=== PATIENT | male | born 1930 | race Caucasian/White ===

== ENCOUNTER 2016-06-12 20:19 | Emergency (ER) | payer OTHER, MEDICARE ==
[2016-06-12] MEDS ORDERED: TETANUS AND DIPHTHERIA TOXOID 0.5 ML INJ IM ONE (20:38)
[2016-06-12] MEDS ORDERED: Lidocaine 1% 10 MG/ML - 20 ML VIAL SUBCUT ONE (20:38)
--- NOTE | 2016-06-12 20:49 | PDOC ---
Fall HPI - General Chief Complaint: Neck / Back Complaint Stated Complaint: Fell down stairs backwards with back pain Date Seen by Provider: 06/12/16 Time Seen by Provider: 20:35 Source: POSITIVE: Patient Exam Limitations: POSITIVE: No limitations Nurse's Notes Reviewed & Considered: Yes - History of Present Illness Initial Comments: The patient is an 85-year-old male who presents to the emergency department after he fell at home. He apparently has been having some cough recently as well as some rib pain. He was evaluated at his doctor's office in [place] this afternoon and had a chest x-ray. He had been prescribed Levaquin for an upper respiratory infection. Apparently this evening after getting home he lost his footing on the stairs and fell. His and son report that he fell down 6 or 8 stairs and hit the back of his head. He did not have any loss of consciousness. Initially he was complaining of some neck pain and is now complaining of pain more in his mid back. His history is somewhat unreliable as he has fairly advanced dementia. His does not think he has had a tetanus shot for quite some time. He does not take any blood thinner medications. Have you received a tetanus shot in the past 10 years?: Unknown - Patient Home Medications Home Medications: Home Medications Home Oxygen 3 l INH BEDTIME 06/12/16 Levofloxacin [Levaquin] 250 mg PO DAILY 06/12/16 HYDROcodone/APAP 7.5/325 Soln [Lortab 7.5 mg/325 mg Soln] 5 ml PO Q6H PRN #120 ml 06/13/16 - Patient Allergies Allergies/Adverse Reactions: Allergies Allergy/AdvReac Type Severity Reaction Status Date / Time tramadol AdvReac HALLUCINATI Verified 06/12/16 20:25 ONS Past Medical History - heen HEENT History: Other (please comment) Additional HEENT History: 7 eye surgeries per pts' report Cardiovascular History: Denies History Respiratory History: COPD, Emphysema, Home Oxygen Use Additional Respiratory History: Black lung disease. Home oxygen 3L Gastrointestinal History: Other (please comment) Additional Gastrointestinal History: Hernia repair Genitourinary History: Denies History Endocrine History: Denies History Musculoskeletal History: Denies History Neurological History: Dementia, Alzheimer's Blood Disorders: Denies History Psychiatric History: Other (please comment) Additional Psychiatric History: dementia Cancer History: Denies History In Past Year Been Physically Harmed or Verbally Threatened: No History of MDRO: Unknown Tobacco Use: Never Smoker Alcohol Use: None Substance Use Type: None Previous Surgical History: Yes Type / Date of Surgery: Hernia repair. Eye surgery x 7 Significant Family History: No pertinent family hx Past Medical History Reviewed: Reviewed - No Changes ROS - Limitations ROS Limitations: No Limitations Constitution: REPORTS: Denies Symptoms Cardiovascular: REPORTS: Denies Cardiac Symptoms Respiratory: REPORTS: Other (His reports recent cough for which she was prescribed Levaquin) Neurological: REPORTS: Denies Neuro Symptoms Gastrointestinal: DENIES: Abdominal Pain Musculoskeletal: REPORTS: Back Pain, Neck Pain, Other (He was placed in a c- collar shortly after arrival) Fall Physical Exam - General Appearance General Appearance: POSITIVE: Alert, Cooperative, No Acute Distress - HEENT HEENT: POSITIVE: Eyes Inspection Nml, Ears Inspection Nml, Pharynx Inspect. Nml , Other (He does have a 3 cm laceration to the occiput with no active bleeding, he was placed in a c-collar) - Neck Neck: POSITIVE: Trachea Midline - Respiratory / CVS Respiratory / CVS: POSITIVE: Chest Non Tender, Breath Sounds Normal, No Respiratory Distress, Heart Sounds Normal, Regular Rate/Rhythm Peripheral Pulses: Dorsalis-pedis (R): 2+, Dorsalis-pedis (L): 2+ - Abdomen Abdomen: Soft: (All Quadrants), Denies Tenderness: (All Quadrants), No Distention: (All Quadrants) - Neuro / Psych Neuro / Psych: POSITIVE: Motor Normal, Sensation Normal, Other (Patient does have significant dementia which limits exam somewhat) - Back Back: POSITIVE: Other (He does have tenderness in the midthoracic region as well as in the lumbar region) - Extremities Extremity Assessment: Normal ROM: (ALL), Normal Inspection: (ALL) Procedures - Laceration/Wound Repair Did patient have a laceration repair: Yes Site of Laceration/Wound: Left Occiput Wound Length (cm): 4 Wound's Depth, Shape: Linear Local Anesthesia Used - Indicate Amt Used in Comment: Lidocaine 1%: Yes Wound Explored: Clean Wound Repaired With: [place] Number of [place]: 6 Fall Progress - Results Reviewed by me Xrays/CTs/US Reviewed by me: Yes Discussed with Radiologist: Yes Radiology Findings: CT scan of the head reveals no intracranial hemorrhage or skull fracture per radiologist. CT scan of the cervical spine reveals no acute fracture, some degenerative changes noted per radiologist. CT scan of his chest , abdomen pelvis without contrast reveals a T9 compression fracture of unknown acuity, no other acute findings per radiologist. - Patient's Progress MDM / ED Course: Because of the patient's fall and neck pain he was placed in a c-collar shortly after arrival. The patient's tetanus was updated with Td. CT scans of his head and neck, chest abdomen and pelvis without contrast was ordered. The patient initially would not sit still at all for CT. He received 2 doses of Ativan 1 mg IV after which we were able to obtain films. The laceration on his occiput was repaired with [address] reveals a T9 compression fracture of unknown acuity although it is most likely related to his current fall as this is his area of pain as well. He has no prior history of back injury or fracture. The remainder of his CT scans were unremarkable for acute injury. The patient does have advanced dementia and his family thought he would do best at home. He is given a prescription for hydrocodone suspension which she can take one or 2 teaspoons every 6 hours as needed for pain. In addition he will try Motrin 400 mg every 6 hours as needed for pain. Wound care instructions were discussed. The patient will return to the emergency room if increased pain , wound infection, any worsening or change in symptoms. He will return for staple removal in 7 days. He is also advised follow-up with primary care in approximately a week. - Consult Counseled: POSITIVE: Patient, Family, RE: Radiology Results, RE: DX, RE: Need for F/U Patient Care Time - Estimated PCT Patient Care Time (In Minutes): 45 Vital Signs - Recent Vital Signs Vital Signs: Vital Signs (Last 8 hours) Temp Pulse Resp BP Pulse Ox 06/12/16 20:20 98.1 F 103 H 20 114/58 97 - VS Reviewed Vital Signs Reviewed: Yes Discharge Clinical Impression: Wedge compression fracture of T9 vertebra, Fall, Scalp laceration Discharge Disposition: Discharged to Home Condition: Fair Prescriptions / Orders: HYDROcodone/APAP 7.5/325 Soln [Lortab 7.5 mg/325 mg Soln] 5 ml PO Q6H PRN #120 ml PRN Reason: Pain Patient Instructions Given at Discharge: Laceration (ED), Vertebral Compression Fracture (ED) Additional Instructions: The CAT scan of his head did not reveal any evidence of bleeding on the inside her skull fracture. The CT scan of his neck did not reveal any fracture, he did have some arthritic changes in his neck. CT scan of his chest, back and pelvis did reveal a compression fracture at the T9 vertebrae which is likely related to his current fall although the age cannot be completely determined by this scan alone. There was no obvious pneumonia and his lungs and there was no other significant findings. The laceration on his scalp has been repaired with 6 erasto. These will need to be removed in approximately 7 days. He has been prescribed hydrocodone suspension which she can take one or 2 teaspoons every 6 hours as needed for pain. Return to the emergency room if any worsening or change in symptoms. Follow-up for staple removal in one week. Follow-up with primary care in 1 week as well. Follow Up With: HIEN MEDRANO [Primary Care Provider] -
[2016-06-12 20:57] VITALS: RESP 20; TEMP 98.1
[2016-06-12] MEDS ORDERED: LORazepam 2 MG/1 ML VIAL IM ONE ×2 (21:15→22:12)
[2016-06-13] MEDS ORDERED: HYDROcodone/Acetaminophen 7.5/325mg/15ml cup PO SCH (00:45)
== END 2016-06-13 01:10 | disposition home or self-care (01) ==
LOC: ER 20:19
DX: S22.070A Wedge compression fracture of T9-T10 vertebra, initial encounter for closed fracture (principal); S01.01XA Laceration without foreign body of scalp, initial encounter; M54.2 Cervicalgia; W10.8XXA Fall (on) (from) other stairs and steps, initial encounter
CPT/HCPCS: 12002; 70450; 71250; 72125; 74176; 90471; 90714; 96372; 99283; J2001; J2060